=== PATIENT | male | born 1960 | race African-American/Black ===

== ENCOUNTER 2019-12-18 13:11 | Observation (INO) | payer SELFPAY ==
[2019-12-18] MEDS ORDERED: ASPIRIN 81 MG TABLET, CHEWABLE PO ONE (13:25)
--- NOTE | 2019-12-18 13:27 | ER Document Report ---
ED Medical Screen (RME) - General Chief Complaint: Chest Pain Stated Complaint: CHEST PAIN, FEET FEEL "TINGLY" Time Seen by Provider: 12/18/19 13:24 Mode of Arrival: Ambulatory Notes: 59-year-old male presented ED for complaint of intermittent chest pain for the last 2 weeks. It is the center of his chest sharp pressure 3/5. He states he is having the pain at this time. He is alert oriented respirations regular and unlabored speaking in full sentences. I have greeted and performed a rapid initial assessment of this patient. A comprehensive ED assessment and evaluation of the patient, analysis of test r esults and completion of medical decision making process will be conducted by an additional ED providers. - Related Data Allergies/Adverse Reactions: No Known Allergies Allergy (Unverified 12/18/19 13:17) Physical Exam - Vital signs Vitals: Temp 98.7 F 12/18/19 13:18 Course - Vital Signs Vital signs: Temp Pulse Resp BP Pulse Ox 98.7 F 85 20 145/60 H 99 12/18/19 13:24 12/18/19 13:24 12/18/19 13:24 12/18/19 13:24 12/18/19 13:24
[2019-12-18 13:46] LABS: ABSOLUTE EOSINOPHILS # (AUTO) 0.1 10^3/uL (0.0-0.6); ABSOLUTE LYMPHOCYTES (AUTO) 1.7 10^3/uL (0.5-4.7); ABSOLUTE MONOCYTES (AUTO) 0.3 10^3/uL (0.1-1.4); ABSOLUTE NEUT (AUTO) 4.1 10^3/uL (1.7-8.2); BASOPHILS % (AUTO) 0.8 % (0-2); EOSINOPHILS % (AUTO) 1.7 % (0-6); HEMATOCRIT 40.9 % (37.9-51.0); HEMOGLOBIN 13.7 g/dL (13.5-17.0); LYMPHOCYTES % (AUTO) 26.8 % (13-45); MEAN CORPUSCULAR HEMOGLOBIN 28.6 pg (27.0-33.4); MEAN CORPUSCULAR HGB CONC 33.4 g/dL (32.0-36.0); MEAN CORPUSCULAR VOLUME 86 fl (80-97); PLATELET COUNT 271 10^3/uL (150-450); RED BLOOD COUNT 4.78 10^6/uL (4.35-5.55); RED CELL DISTRIBUTION WIDTH 15.9 % (11.5-14.0); SEGMENTED NEUTROPHILS % (AUTO) 65.7 % (42-78); TOTAL CELLS COUNTED % (AUTO) 100 %; WHITE BLOOD COUNT 6.2 10^3/uL (4.0-10.5)
--- NOTE | 2019-12-18 13:59 | RADIOLOGY REPORT (SQ) ---
EXAM DESCRIPTION: CHEST 2 VIEWS IMAGES COMPLETED DATE/TIME: 12/18/2019 1:45 pm REASON FOR STUDY: chest pain COMPARISON: None. EXAM PARAMETERS: NUMBER OF VIEWS: Two views. TECHNIQUE: PA and lateral views of the chest were obtained. RADIATION DOSE: NA LIMITATIONS: None. FINDINGS: LUNGS AND PLEURA: No consolidation, pleural effusion or pneumothorax. MEDIASTINUM AND HILAR STRUCTURES: No mediastinal or hilar contour abnormality. HEART AND VASCULAR STRUCTURES: The cardiac silhouette and pulmonary vasculature are within normal moreno its. BONES: Apparent deformity of the left humeral head. HARDWARE: None in the chest. OTHER: No other finding. IMPRESSION: 1. No acute cardiopulmonary process. 2. Apparent deformity of the left humeral head - consider radiographs of the left shoulder. TECHNICAL DOCUMENTATION: JOB ID: [id number] 2010 [employer]- All Rights Reserved Reading location - IP/workstation name: [email or web address]
[2019-12-18 14:04] LABS: ALBUMIN 4.4 g/dL (3.5-5.0); ALKALINE PHOSPHATASE 101 U/L (38-126); ANION GAP 11 (5-19); ASPARTATE AMINO TRANSFERASE 21 U/L (17-59); BILIRUBIN,TOTAL 0.5 mg/dL (0.2-1.3); BLOOD UREA NITROGEN 15 mg/dL (7-20); CALCIUM 9.8 mg/dL (8.4-10.2); CARBON DIOXIDE 25 mmol/L (22-30); CHLORIDE 103 mmol/L (98-107); GLUCOSE 213 mg/dL (75-110); POTASSIUM 4.1 mmol/L (3.6-5.0); TOTAL PROTEIN 7.4 g/dL (6.3-8.2)
--- NOTE | 2019-12-18 15:38 | EKG REPORT ---
SEVERITY:- ABNORMAL ECG - SINUS RHYTHM CONSIDER LEFT VENTRICULAR HYPERTROPHY : Confirmed by: Michael Billings MD 18-Dec-2019 15:37:44
[2019-12-18] MEDS ORDERED: NITROGLYCERIN 0.4 MG/TAB 25 TAB/BOTTLE SL STA (16:03)
--- NOTE | 2019-12-18 16:11 | ER Document Report ---
ED Cardiac - General Chief Complaint: Chest Pain Stated Complaint: CHEST PAIN, FEET FEEL "TINGLY" Time Seen by Provider: 12/18/19 13:24 Mode of Arrival: Ambulatory Information source: Patient Notes: Patient is a 59-year-old male comes the emergency room complaining of intermittent midsternal chest pain for the past 2 weeks. Patient states that he notices it more with activity but it comes at anytime during the day or night. He currently on his arrival to ER states he had about a 6 out of 10 substernal chest pain at that time but is now down to a 3 out of 10. Patient has no past medical diagnosis is however he has not seen a doctor in a long time. He has pertinent family history for father and brother both dying at age 59 of heart attack. He does admit to smoking 2 packs of cigarettes a day. He also states that there is diabetes in his family and he does not know if he has it or not. 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 He has stated he currently takes no medication. Patient states he decided to come in today because this pain is starting to scare him. - HPI Patient complains to provider of: Chest pain Use of: denies: Alcohol, Amphetamines Chest pain location: Substernal Quality of pain: Intermittent, Achy, Sharp Severity now: Mild Severity at worst: Moderate Pain level currently: 3 Chest pain precipitating factors: Physical Exertion Cardiac risk factors: Hypertension, Smoker, + Family history Positive cardiac history: No Associated symptoms: denies: Shortness of breath Exacerbated by: Activity Relieved by: Nothing Similar symptoms previously: Yes Recently seen / treated by doctor: No - Related Data Allergies/Adverse Reactions: No Known Allergies Allergy (Verified 12/18/19 17:15) Past Medical History - General Information source: Patient - Social History Smoking Status: Current Every Day Smoker Cigarette use (# per day): Yes - 2 packs a day Frequency of alcohol use: Stopped drinking 10 years ago. 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 Lives with: Alone Family History: CAD, DM, Hypertension Patient has homicidal ideation: No Review of Systems - Review of Systems Constitutional: No symptoms reported EENT: No symptoms reported Cardiovascular: See HPI, Chest pain Respiratory: No symptoms reported Gastrointestinal: No symptoms reported Genitourinary: No symptoms reported Male Genitourinary: No symptoms reported Musculoskeletal: No symptoms reported Skin: No symptoms reported Hematologic/Lymphatic: No symptoms reported Neurological/Psychological: No symptoms reported -: Yes All other systems reviewed and negative Physical Exam - Vital signs Vitals: Temp 98.7 F 12/18/19 13:18 Interpretation: Hypertensive - Notes Notes: PHYSICAL EXAMINATION: GENERAL:well-nourished and in no acute distress. HEAD: Atraumatic, normocephalic. EYES: Pupils equal round and reactive to light, extraocular movements intact, sclera anicteric, conjunctiva are normal. ENT: Nares patent, oropharynx clear without exudates. Moist mucous membranes. NECK: Normal range of motion, supple without lymphadenopathy LUNGS: Auscultation patient's lung shows he has bilateral breath sounds of breath sounds decreased throughout there is no rhonchi rales or wheeze heard on examination. HEART: Regular rate and rhythm without murmurs ABDOMEN: Soft, nontender, nondistended abdomen. No guarding, no rebound. No masses appreciated. Musculoskeletal: Normal range of motion, no pitting or edema. No cyanosis. NEUROLOGICAL: Normal speech, normal gait. Normal sensory, motor exams PSYCH: Normal mood, normal affect. SKIN: Warm, Dry, normal turgor, no rashes or lesions noted. Course - Re-evaluation Re-evalutation: 12/18/19 16:10 Given patient's significant family history his history of 2 pack-a-day smoking and possible history of diabetes I feel it is prudent to contact hospitalist to discuss admission for rule out of his chest pain. - Vital Signs Vital signs: Temp Pulse Resp BP Pulse Ox 97.9 F 85 16 157/76 H 99 12/18/19 18:00 12/18/19 19:55 12/18/19 19:01 12/18/19 19:01 12/18/19 19:01 - Laboratory Result Diagrams: 12/18/19 13:30 12/18/19 13:30 Laboratory results interpreted by me: 12/18/19 12/18/19 13:30 13:30 RDW 15.9 H Glucose 213 H Discharge - Discharge Clinical Impression: Chest pain Qualifiers: Chest pain type: other chest pain Qualified Code(s): R07.89 - Other chest pain Condition: Stable Disposition: ADMITTED OBSERVATION Admitting Provider: Bonifacio (Hospitalist) Unit Admitted: Telemetry
--- NOTE | 2019-12-18 18:03 | PDOC H&P ---
History of Present Illness History of Present Illness: J CARLOS YAÑEZ is a 59 year old male who comes in with chest pain. He has not seen a doctor in years. He went to an urgent care a couple of months ago for something nonspecific but he has not had primary care in years. He said that the chest pain is been going off and on for 2 weeks. He said it happened 3 or 4 times a day. He said it last anywhere from a few minutes to a few hours. It is midsternal just to the left of the midline. He describes it as a sharp stabbing pain. It does not radiate. He said it happens while he is working and also while he is at rest. He said it happens at different times of the day. It is not related to him eating. He said nothing he knows of really makes it better or worse. He said he tried some mustard 1 time to help make it better because it something his parents used to do when they had chest pain. He smokes 2 packs of cigarettes a day. His blood sugar was elevated in the ER but he does not know if he has diabetes. He says everybody in his family, his parents and his siblings, have heart disease and diabetes. He does not have any children. His blood pressure was elevated. His EKG showed no evidence of ischemia, but it corley s show evidence of left ventricular hypertrophy. He has never had any sort of cardiac evaluation whatsoever. Social History Lives with: Alone Smoking Status: Current Every Day Smoker Family History Family History: CAD, DM, Hypertension Parental Family History Reviewed: Yes Children Family History Reviewed: Yes Sibling(s) Family History Reviewed.: NA Medication/Allergy Allergies/Adverse Reactions: No Known Allergies Allergy (Verified 12/18/19 17:15) Review of Systems All systems: reviewed and no additional remarkable complaints except as stated - All systems were reviewed and were negative except as noted in HPI Physical Exam Vital Signs: Temp Pulse Resp BP Pulse Ox 98.7 F 85 20 145/60 H 99 12/18/19 13:24 12/18/19 13:24 12/18/19 13:24 12/18/19 13:24 12/18/19 13:24 Intake & Output 12/17/19 12/18/19 12/19/19 06:59 06:59 06:59 Weight 72.575 kg General appearance: PRESENT: no acute distress, cooperative, disheveled Head exam: PRESENT: atraumatic, normocephalic Eye exam: PRESENT: EOMI, PERRLA. ABSENT: nystagmus, scleral icterus Ear exam: PRESENT: normal external ear exam Mouth exam: PRESENT: moist, neck supple Teeth exam: PRESENT: poor dentation Throat exam: ABSENT: post pharyngeal erythema Neck exam: PRESENT: full ROM. ABSENT: carotid bruit, JVD, lymphadenopathy, meningismus, tenderness, thyromegaly Respiratory exam: PRESENT: clear to auscultation junaid, symmetrical, unlabored. ABSENT: accessory muscle use, chest wall tenderness, crackles, prolonged expiratory phas, rhonchi, tachypnea, wheezes Cardiovascular exam: PRESENT: RRR, +S1, +S2 Pulses: PRESENT: normal carotid pulses Vascular exam: PRESENT: normal capillary refill GI/Abdominal exam: PRESENT: normal bowel sounds, soft. ABSENT: distended, rebound, tenderness Extremities exam: ABSENT: clubbing, pedal edema Musculoskeletal exam: PRESENT: normal inspection. ABSENT: deformity Neurological exam: PRESENT: alert, awake, oriented to person, oriented to place, oriented to time, oriented to situation, CN II-XII grossly intact. ABSENT: motor sensory deficit Psychiatric exam: PRESENT: appropriate affect, normal mood Skin exam: PRESENT: dry, warm Results Laboratory Results: 12/18/19 13:30 12/18/19 13:30 12/18/19 12/18/19 13:30 13:30 WBC 6.2 RBC 4.78 Hgb 13.7 Hct 40.9 MCV 86 MCH 28.6 MCHC 33.4 RDW 15.9 H Plt Count 271 Seg Neutrophils % 65.7 Sodium 138.5 Potassium 4.1 Chloride 103 Carbon Dioxide 25 Anion Gap 11 BUN 15 Creatinine 0.87 Est GFR ( Amer) > 60 Glucose 213 H Calcium 9.8 Total Bilirubin 0.5 AST 21 Alkaline Phosphatase 101 Total Protein 7.4 Albumin 4.4 12/18/19 12/18/19 13:30 16:44 Troponin I < 0.012 < 0.012 Impressions: Chest X-Ray 12/18/19 13:26 IMPRESSION: 1. No acute cardiopulmonary process. 2. Apparent deformity of the left humeral head - consider radiographs of the left shoulder. Assessment and Plan - Diagnosis (1) Chest pain Qualifiers: Chest pain type: other chest pain Qualified Code(s): R07.89 - Other chest pain; R07.8 - Other chest pain Is this a current diagnosis for this admission?: Yes Plan: He is got a pretty strong family history and he has a lot of risk factors. His blood pressure is elevated so he probably has hypertension. He smokes 2 packs of cigarettes a day. His blood sugar is elevated and the last time he had something to eat was early this morning and so he could potentially be a diabetic. Were going to put him on aspirin and trend his enzymes and keep him on telemetry. If he rules out, we will try to get his blood pressure under control, cover his diabetes if he has it, and have follow-up scheduled with cardiology for ischemic work-up. (2) Hypertension Qualifiers: Hypertension type: essential hypertension Qualified Code(s): I10 - Essential (primary) hypertension Is this a current diagnosis for this admission?: Yes Plan: We are going to monitor his blood pressures overnight. If he winds up needing medication, will start him on that in the morning. (3) Hyperglycemia Is this a current diagnosis for this admission?: Yes Plan: Have ordered a hemoglobin A1c to evaluate for diabetes (4) Current every day smoker Is this a current diagnosis for this admission?: Yes Plan: Strongly encourage cessation - Time Time Spent with patient: 35 or more minutes
[2019-12-19 06:04] LABS: HEMATOCRIT 37.5 % (37.9-51.0); HEMOGLOBIN 12.6 g/dL (13.5-17.0); MEAN CORPUSCULAR HEMOGLOBIN 28.4 pg (27.0-33.4); MEAN CORPUSCULAR HGB CONC 33.4 g/dL (32.0-36.0); MEAN CORPUSCULAR VOLUME 85 fl (80-97); PLATELET COUNT 247 10^3/uL (150-450); RED BLOOD COUNT 4.42 10^6/uL (4.35-5.55); RED CELL DISTRIBUTION WIDTH 15.6 % (11.5-14.0); WHITE BLOOD COUNT 5.6 10^3/uL (4.0-10.5)
[2019-12-19 06:30] LABS: ANION GAP 6 (5-19); BLOOD UREA NITROGEN 20 mg/dL (7-20); CALCIUM 9.3 mg/dL (8.4-10.2); CARBON DIOXIDE 27 mmol/L (22-30); CHLORIDE 102 mmol/L (98-107); CHOLESTEROL 127.37 mg/dL (0-200); GLUCOSE 142 mg/dL (75-110); POTASSIUM 4.2 mmol/L (3.6-5.0); TRIGLYCERIDES 86 mg/dL (<150)
[2019-12-19 06:40] LABS: DIRECT LDL 80 mg/dL (<100)
[2019-12-19 08:02] VITALS: BP 148/72
[2019-12-19] MEDS ORDERED: ASPIRIN 81 MG TABLET, CHEWABLE PO SCH (10:00)
--- NOTE | 2019-12-19 10:58 | EKG REPORT ---
SEVERITY:- NORMAL ECG - SINUS RHYTHM : Confirmed by: Michael Billings MD 19-Dec-2019 10:58:21
--- NOTE | 2019-12-19 17:26 | PDOC DISCHARGE SUMMARY ---
Impression - Admit/DC Date/PCP Admission Date/Primary Care Provider: 12/18/19 18:29 Discharge Date: 12/19/19 - Discharge Diagnosis (1) Chest pain Is this a current diagnosis for this admission?: Yes (2) Hypertension Is this a current diagnosis for this admission?: Yes (3) Hyperglycemia Is this a current diagnosis for this admission?: Yes (4) Current every day smoker Is this a current diagnosis for this admission?: Yes - Additional Information Resuscitation Status: Full Code Discharge Diet: Cardiac Discharge Activity: Activity As Tolerated Referrals: AL HILTON MD [ACTIVE STAFF] - (We will schedule a follow-up for you and contat you with the date and time. Thank you and have a marvelous day.) Home Medications: Aspirin [Aspirin 81 mg Chewable Tablet] 81 mg PO DAILY tab.chew 12/19/19 History of Present Illiness History of Present Illness: J CARLOS YAÑEZ is a 59 year old male who comes in with chest pain. He has not seen a doctor in years. He went to an urgent care a couple of months ago for something nonspecific but he has not had primary care in years. He said that the chest pain is been going off and on for 2 weeks. He said it happened 3 or 4 times a day. He said it last anywhere from a few minutes to a few hours. It is midsternal just to the left of the midline. He describes it as a sharp stabbing pain. It does not radiate. He said it happens while he is working and also while he is at rest. He said it happens at different times of the day. It is not related to him eating. He said nothing he knows of really makes it better or worse. He said he tried some mustard 1 time to help make it better because it something his parents used to do when they had chest pain. He smokes 2 packs of cigarettes a day. His blood sugar was elevated in the ER but he does not know if he has diabetes. He says everybody in his family, his parents and his siblings, have heart disease and diabetes. He does not have any children. His blood pressure was elevated. His EKG showed no evidence of ischemia, but it does show evidence of left ventricular hypertrophy. He has never had any sort of cardiac evaluation whatsoever. Hospital Course Hospital Course: He ruled out for an acute ischemic event. Hemoglobin A1c was 5.4%. Lipid panel was unremarkable. Blood pressures have improved. I told him to take a aspirin a day. Strongly recommended that he quit smoking for his overall health and in order to reduce his cardiovascular risk in particular. We will set him up with an appointment to see Dr. Hilton in the office so that he can be evaluated for the need for further ischemic work-up. His labs and examination were reassuring he was discharged in stable condition. Physical Exam Vital Signs: Temp Pulse Resp BP Pulse Ox 97.8 F 60 16 148/72 H 100 12/19/19 11:16 12/19/19 11:16 12/19/19 11:16 12/19/19 11:16 12/19/19 11:16 Intake & Output 12/18/19 12/19/19 12/20/19 06:59 06:59 06:59 Intake Total 300 Balance 300 Weight 68.5 kg General appearance: PRESENT: no acute distress, cooperative, disheveled Respiratory exam: PRESENT: clear to auscultation junaid, symmetrical, unlabored. ABSENT: accessory muscle use, chest wall tenderness, crackles, prolonged expiratory phas, rhonchi, tachypnea, wheezes Cardiovascular exam: PRESENT: RRR, +S1, +S2 Pulses: PRESENT: normal carotid pulses Vascular exam: PRESENT: normal capillary refill GI/Abdominal exam: PRESENT: normal bowel sounds, soft. ABSENT: distended, rebound, tenderness Extremities exam: ABSENT: clubbing, pedal edema Musculoskeletal exam: PRESENT: normal inspection. ABSENT: deformity Neurological exam: PRESENT: alert, awake, oriented to person, oriented to place, oriented to time, oriented to situation Psychiatric exam: PRESENT: appropriate affect, normal mood Skin exam: PRESENT: dry, warm Results Laboratory Results: WBC 5.6 10^3/uL (4.0-10.5) 12/19/19 05:01 RBC 4.42 10^6/uL (4.35-5.55) 12/19/19 05:01 Hgb 12.6 g/dL (13.5-17.0) L 12/19/19 05:01 Hct 37.5 % (37.9-51.0) L 12/19/19 05:01 MCV 85 fl (80-97) 12/19/19 05:01 MCH 28.4 pg (27.0-33.4) 12/19/19 05:01 MCHC 33.4 g/dL (32.0-36.0) 12/19/19 05:01 RDW 15.6 % (11.5-14.0) H 12/19/19 05:01 Plt Count 247 10^3/uL (150-450) 12/19/19 05:01 Lymph % (Auto) 26.8 % (13-45) 12/18/19 13:30 [place] % (Auto) 5.0 % (3-13) 12/18/19 13:30 Eos % (Auto) 1.7 % (0-6) 12/18/19 13:30 Baso % (Auto) 0.8 % (0-2) 12/18/19 13:30 Absolute Neuts (auto) 4.1 10^3/uL (1.7-8.2) 12/18/19 13:30 Absolute Lymphs (auto) 1.7 10^3/uL (0.5-4.7) 12/18/19 13:30 Absolute Monos (auto) 0.3 10^3/uL (0.1-1.4) 12/18/19 13:30 Absolute Eos (auto) 0.1 10^3/uL (0.0-0.6) 12/18/19 13:30 Absolute Basos (auto) 0.0 10^3/uL (0.0-0.2) 12/18/19 13:30 Seg Neutrophils % 65.7 % (42-78) 12/18/19 13:30 Sodium 135.2 mmol/L (137-145) L 12/19/19 05:01 Potassium 4.2 mmol/L (3.6-5.0) 12/19/19 05:01 Chloride 102 mmol/L (98-107) 12/19/19 05:01 Carbon Dioxide 27 mmol/L (22-30) 12/19/19 05:01 Anion Gap 6 (5-19) 12/19/19 05:01 BUN 20 mg/dL (7-20) 12/19/19 05:01 Creatinine 0.79 mg/dL (0.52-1.25) 12/19/19 05:01 Est GFR ( Amer) > 60 (>60) 12/19/19 05:01 Est GFR (MDRD) Non-Af > 60 (>60) 12/19/19 05:01 Glucose 142 mg/dL (75-110) H 12/19/19 05:01 Hemoglobin A1c % 5.4 % (4.7-6.0) 12/19/19 05:01 Calcium 9.3 mg/dL (8.4-10.2) 12/19/19 05:01 Total Bilirubin 0.5 mg/dL (0.2-1.3) 12/18/19 13:30 Direct Bilirubin 0.0 mg/dL (0.0-0.4) 12/18/19 13:30 Neonat Total Bilirubin Not Reportable 12/18/19 13:30 Neonat Direct Bilirubin Not Reportable 12/18/19 13:30 Neonat Indirect Bili Not Reportable 12/18/19 13:30 AST 21 U/L (17-59) 12/18/19 13:30 ALT 17 U/L (<50) 12/18/19 13:30 Alkaline Phosphatase 101 U/L (38-126) 12/18/19 13:30 Troponin I < 0.012 ng/mL 12/18/19 23:45 Total Protein 7.4 g/dL (6.3-8.2) 12/18/19 13:30 Albumin 4.4 g/dL (3.5-5.0) 12/18/19 13:30 Triglycerides 86 mg/dL (<150) 12/19/19 05:01 Cholesterol 127.37 mg/dL (0-200) 12/19/19 05:01 LDL Cholesterol Direct 80 mg/dL (<100) 12/19/19 05:01 VLDL Cholesterol 17.0 mg/dL (10-31) 12/19/19 05:01 HDL Cholesterol 39 mg/dL (>40) L 12/19/19 05:01 12/18/19 12/18/19 12/18/19 13:30 16:44 23:45 Troponin I < 0.012 < 0.012 < 0.012 Impressions: Chest X-Ray 12/18/19 13:26 IMPRESSION: 1. No acute cardiopulmonary process. 2. Apparent deformity of the left humeral head - consider radiographs of the left shoulder. Plan Time Spent: Greater than 30 Minutes Stroke Is this a Stroke Patient?: No Acute Heart Failure - Is this a Heart Failure Patient?: No
== END 2019-12-19 11:46 | disposition home or self-care (01) ==
LOC: ER 13:11 → EH 18:29 → 4N 19:52
PROVIDERS: ADMIT Family Medicine; ATTEND Family Medicine
DX: R07.89 Other chest pain (principal); I10 Essential (primary) hypertension; R73.9 Hyperglycemia, unspecified; F17.210 Nicotine dependence, cigarettes, uncomplicated; Z82.49 Family history of ischemic heart disease and other diseases of the circulatory system; Z83.3 Family history of diabetes mellitus
CPT/HCPCS: 93005 ×2; 99285; 36415 ×2; 85025; 85027; 80048; 80053; 84484; 83036; 80061; 71046; 93010 ×2; G0378 ×3; J3490 ×2

== ENCOUNTER → 2020-05-05 | Outpatient (CLI) | payer OTHER ==
--- NOTE | 2020-05-05 15:57 | RADIOLOGY REPORT (SQ) ---
EXAM DESCRIPTION: VENOUS UNILATERAL LOWER IMAGES COMPLETED DATE/TIME: 05/05/2020 3:30 pm REASON FOR STUDY: LLE PAIN, SWELLING M79.605 PAIN IN LEFT LEG COMPARISON: None. TECHNIQUE: Dynamic and static andujar scale and color images acquired of the left leg venous system. Se lected spectral images acquired with additional compression and augmentation maneuvers. The contralat eral common femoral vein and saphenofemoral junction were also imaged. Images stored on PACS. LIMITATIONS: None. FINDINGS: COMMON FEMORAL: Normal phasicity, compression and augmentation. No visualized echogenic ma terial on andujar scale. No defects on color images. FEMORAL: Normal compression and augmentation. No visualized echogenic material on andujar scale. No defe cts on color images. POPLITEAL: Normal compression, augmentation. No visualized echogenic material on andujar scale. No defec ts on color images. CALF VESSELS: Normal compression, augmentation. No visualized echogenic material on andujar scale. No de fects on color images. GSV and SSV: Normal compression, augmentation. No visualized echogenic material on andujar scale. No def ects on color images. ANY DEEP VENOUS INSUFFICIENCY: No. ANY EVIDENCE OF POPLITEAL CYST: No. OTHER: No other significant finding. CONTRALATERAL COMMON FEMORAL VEIN AND SAPHENOFEMORAL JUNCTION: Normal phasicity, compression and augmentation. No visualized echogenic material on andujar scale. No de fects on color images. IMPRESSION: NO EVIDENCE DVT OR SVT IN THE LEFT LEG. TECHNICAL DOCUMENTATION: JOB ID: [id number] [email or web address]- All Rights Reserved Reading location - IP/workstation name: [email or web address]
== END ==
LOC: SP 07:53
PROVIDERS: ATTEND Family Medicine
DX: M79.605 Pain in left leg (principal)
CPT/HCPCS: 93971